=== PATIENT | female | born 1995 | race American Indian/Alaskan Native ===

== ENCOUNTER 2021-09-18 06:55 | Emergency (ER) | payer SELFPAY ==
[2021-09-18 07:00] VITALS: BP 130/75
[2021-09-18] MEDS ORDERED: predniSONE 10 MG TAB PO ONE (07:27)
[2021-09-18] MEDS ORDERED: ALBUTEROL 2.5 MG/3 ML NEBU IH ONE (07:27)
--- NOTE | 2021-09-18 07:31 | Emergency Department Report ---
Minor Respiratory - HPI Chief Complaint: Sore Throat Stated Complaint: THROAT/HEAD/CP Time Seen by Provider: 09/18/21 07:04 Duration: 3 Days Pain Location: Throat, Chest Severity: mild Minor Respiratory: Yes Sore Throat, Yes Able to Tolerate Fluids, Yes Cough, Yes Sick Contacts, Yes Chest Pain (With cough), Yes Fever, No Rhinorrhea, No Ear Pain, No Hemoptysis, No Shortness of Breath Other History: 25-year-old -[place] female presents to the emergency room for a 3-day history of sore throat cough chest pain with cough fever that was 101 last night. She is not vaccinated for Covid. She denies any nausea no vomiting. Not vaccinated for flu. Does not have a primary care provider. Last menstrual period was 09/11/2021. She does have sick contact at home which is her mother that is being seen. ED Review of Systems ROS: Stated complaint: THROAT/HEAD/CP Other details as noted in HPI Comment: All other systems reviewed and negative ED Past Medical Hx - Past Medical History Previous Medical History?: No - Surgical History Additional Surgical History: KNEE SURGERY Minor Respiratory Exam - Exam General: Vital signs noted. No distress. Alert and acting appropriately. HEENT: Yes Moist Mucous Membranes, No Pharyngeal Erythema, No Pharyngeal Exudates, No Rhinorrhea, No Conjuctival Injection, No Frontal Tenderness, No Maxillary Tenderness Ear: Neither TM Bulge, Neither TM Erythema, Neither EAC Pain, Neither EAC Discharge Neck: Yes Supple, No Adenopathy Lungs: Yes Good Air Exchange, Yes Wheezes, Yes Cough, No Ronchi, No Stridor, No Labored Respirations, No Use of Accessory Muscles, No Other Abnormal Lung Sounds Heart: Yes Regular, No Murmur Skin: No Rash, No Edema Neurologic: Alert and oriented, no deficits. Musculoskeletal: Unremarkable. ED Course Vital Signs 09/18/21 06:56 Temperature 99.6 F Pulse Rate 90 Respiratory 18 Rate Blood Pressure 130/75 [Right] O2 Sat by Pulse 98 Oximetry ED Medical Decision Making - Lab Data Lab Results 09/18/21 Range/Units Unknown Group A Strep Rapid Negative (Negative) - Radiology Data Radiology results: report reviewed [facility] [address] [place] [address] XRay Report Signed Patient: RAZIA DIAS MR#: [id number] 111 : 1995 Acct:[id number] Age/Sex: 25 / F ADM Date: 09/18/21 Loc: ED Attending Dr: Ordering Physician: MORALES AVILA Date of Service: 09/18/21 Procedure(s): XR chest routine 2V Accession Number(s): [id number] cc: MORALES AVILA Fluoro Time In Minutes: XR chest routine 2V INDICATION / CLINICAL INFORMATION: cough, wheezing,fever. COMPARISON: None available. FINDINGS: SUPPORT DEVICES: None. HEART /PULMONARY VASCULATURE: No significant abnormality. LUNGS / PLEURA: No significant pulmonary or pleural abnormality. No pneumothorax. ADDITIONAL FINDINGS: No significant additional findings. IMPRESSION: 1. No acute findings. Signer Name: Sandra Reardon MD Signed: 09/18/2021 7:52 AM Workstation Name: [id number] Transcribed By: COLBY Dictated By: SANDRA REARDON MD Electronically Authenticated By: SANDRA REARDON MD Signed Date/Time: 09/18/21751 DD/ 0 TD/TT: Print - Medical Decision Making 25-year-old -[place] female presents to the emergency room for a 3-day history of sore throat cough chest pain with cough fever that was 101 last night. She is not vaccinated for Covid. She denies any nausea no vomiting. Not vaccinated for flu. Does not have a primary care provider. Last menstrual period was 09/11/2021. She does have sick contact at home which is her mother that is being seen. Chest x-ray, rapid strep, prednisone and albuterol has been ordered. Strep test negative. Critical care attestation.: If time is entered above; I have spent that time in minutes in the direct care of this critically ill patient, excluding procedure time. ED Disposition Clinical Impression: Acute URI Disposition: HOME / SELF CARE / HOMELESS Is pt being admited?: No Does the pt Need Aspirin: No Condition: Stable Instructions: Viral Respiratory Infection, [id number] Additional Instructions: Strep test is negative chest x-ray is negative. Complete steroids, use albuterol as needed for cough shortness of breath and wheezing. Increase your water intake follow-up with your primary care provider. Referrals: PRIMARY CAREMD [Primary Care Provider] - 3-5 Days Forms: Work/School Release Form(ED) Time of Disposition: 09:03
--- NOTE | 2021-09-18 07:56 | XRay Report ---
XR chest routine 2V INDICATION / CLINICAL INFORMATION: cough, wheezing,fever. COMPARISON: None available. FINDINGS: SUPPORT DEVICES: None. HEART /PULMONARY VASCULATURE: No significant abnormality. LUNGS / PLEURA: No significant pulmonary or pleural abnormality. No pneumothorax. ADDITIONAL FINDINGS: No significant additional findings. IMPRESSION: 1. No acute findings. Signer Name: Boy Ku MD Signed: 09/18/2021 7:52 AM Workstation Name: [id number]
== END 2021-09-18 09:19 | disposition home or self-care (01) ==
LOC: ED 06:55
DX: J06.9 Acute upper respiratory infection, unspecified (principal)
CPT/HCPCS: 71046; 87116; 87430; 94640; 99284; J7512